=== PATIENT | female | born 1980 | race Native Hawaiian/Other Pacific Islander ===

== ENCOUNTER 2022-11-15 01:34 | Emergency (ER) | payer OTHER ==
[~2022-11-15] VITALS: Ht 167.6 cm; Wt 59.0 kg
[2022-11-15 02:55] VITALS: BP 133/83; TEMP 96.2
== END 2022-11-15 02:55 | disposition home or self-care (01) ==
LOC: ED 01:34
DX: T16.1XXA Foreign body in right ear, initial encounter (principal)
CPT/HCPCS: 99283